=== PATIENT | male | born 1950 | race Caucasian/White ===

== ENCOUNTER → 2019-11-04 07:49 | Outpatient (CLI) | payer BC, SELFPAY ==
--- NOTE | ~2019-11-04 | XR_ITS ---
EXAMINATION: XR chest 2V 11/04/2019 08:51 INDICATION: Bronchitis PROCEDURE: 2 view chest COMPARISON: No prior studies for comparison. FINDINGS: The lungs are clear. The cardiomediastinal silhouette is within normal limits. There are no pleural effusions. There is no pneumothorax suspected. IMPRESSION: 1: NO ACUTE CARDIOPULMONARY DISEASE. Reviewed, dictated and finalized at location A.
--- NOTE | ~2019-11-04 | US_ITS ---
EXAMINATION: US aorta DATE: 11/04/2019 08:55 CDT INDICATION: Screening for abdominal aortic aneurysm. History of smoking. TECHNIQUE: Grayscale, color Doppler, and pulsed Doppler images of the aorta and common iliac arteries were obtained. COMPARISON: None. FINDINGS: The proximal aorta measures 2.3 cm greatest sagittal dimension. The mid aorta measures 1.9 cm greates t sagittal dimension. The distal aorta measures 1.8 cm greatest sagittal dimension. The right common internal iliac artery measures 1.1 cm. The left common iliac artery measures 1.3 cm. IMPRESSION: 1. Normal caliber aorta without aneurysm. Reviewed, dictated and finalized at location A.
--- NOTE | ~2019-11-04 | MR_ITS ---
EXAMINATION: MR shoulder LT wo con DATE: 11/04/2019 08:48 INDICATION: Acute left shoulder pain. TECHNIQUE: Magnetic resonance imaging (MRI) of the left shoulder was performed without intravenous co ntrast. Sequences included axial PD-weighted FS FSE, coronal oblique PD-weighted FS FSE and T2-weight ed FS FSE, and sagittal oblique T2-weighted FS FSE and T1-weighted FSE. COMPARISON: None. FINDINGS: Coracoacromial arch: The acromion undersurface is curved in morphology (type II). There is severe acromioclavicular joint osteoarthritis. There is mild subacromial/subdeltoid bursitis. Rotator cuff: There is an articular sided partial-thickness tear of supraspinatus and infraspinatus tendons measuri ng 2.4 cm anterior to posterior by 6 mm proximal to distal by up to 70% tendon thickness anteriorly. Teres minor tendon is normal. Subscapularis tendon is normal. There is mild fatty atrophy of teres mi nor muscle belly, consistent with quadrilateral space syndrome. Biceps tendon and glenoid labrum: Biceps tendon is in bicipital groove. Intra-articular biceps tendon is normal. There is a degenerativ e tear of superior labrum at 12:00 (type I SLAP tear). Fluid: There is no glenohumeral joint effusion. Bones/cartilage: Humeral head cartilage is normal. IMPRESSION: 1. Articular-sided, partial-thickness tear involving supraspinatus and infraspinatus tendons. 2. SLAP tear. 3. Severe acromioclavicular joint osteoarthritis. 4. Mild subacromial/subdeltoid bursitis. Reviewed, dictated and finalized at location A. IMPRESSION: 1. Articular-sided, partial-thickness tear involving supraspinatus and infraspi natus tendons. 2. SLAP tear. 3. Severe acromioclavicular joint osteoarthritis. 4. Mild subacromial/subdeltoid bursitis.
== END ==
PROVIDERS: PCP Physician Assistant; Visit Provider Physician Assistant
DX: J40 Bronchitis, not specified as acute or chronic (principal); Z13.6 Encounter for screening for cardiovascular disorders; M19.012 Primary osteoarthritis, left shoulder; M75.52 Bursitis of left shoulder; S43.432A Superior glenoid labrum lesion of left shoulder, initial encounter; X58.XXXA Exposure to other specified factors, initial encounter
CPT/HCPCS: 71046; 73221; 76775